=== PATIENT | male | born 1975 | race Caucasian/White ===

== ENCOUNTER 2021-02-08 09:05 | Emergency (ER) | payer OTHER ==
[2021-02-08] MEDS ORDERED: CEPHALEXIN500 MG PO (11:10)
== END 2021-02-08 11:21 | disposition home or self-care (01) ==
LOC: FER 09:05
DX: S61.213A Laceration without foreign body of left middle finger without damage to nail, initial encounter (principal); I10 Essential (primary) hypertension; E11.9 Type 2 diabetes mellitus without complications; W27.0XXA Contact with workbench tool, initial encounter; Y92.89 Other specified places as the place of occurrence of the external cause; Y99.0 Civilian activity done for income or pay
CPT/HCPCS: 73130